=== PATIENT | female | born 1995 | race African-American/Black ===

== ENCOUNTER → 2017-07-20 08:20 | Outpatient (CLI) | payer MEDICAID | END | disposition home or self-care (01) | LOC: D.LDO 08:20 | DX: O26.899 Other specified pregnancy related conditions, unspecified trimester (principal) ==

== ENCOUNTER 2018-09-28 12:54 | Emergency (ER) | payer MEDICAID ==
[~2018-09-28] VITALS: Ht 162.6 cm; Wt 104.5 kg
[2018-09-28 13:00] VITALS: Ht 162.6 cm; Wt 104.5 kg
[2018-09-28 16:15] LABS: ALBUMIN 3.7 g/dL (3.4-5.0); ALKALINE PHOSPHATASE 91 U/L (46-116); ALT (SGPT) 20 U/L (10-68); BILIRUBIN - TOTAL 0.22 mg/dL (0.2-1.3); CALC OSMOLALITY 281 mosm/kg (275-300); CALCIUM 9.1 mg/dL (8.5-10.1); CARBON DIOXIDE 27.1 mmol/L (21.0-32.0); CHLORIDE - SERUM 98 mmol/L (98-107); CREATININE - SERUM 0.8 mg/dL (0.6-1.3); POTASSIUM - SERUM 4.3 mmol/L (3.5-5.1); SODIUM 134 mmol/L (136-145); UREA NITROGEN 10 mg/dL (7-18); eGFR NON AFRICAN AMERICAN > 90 mL/min (90-120)
[2018-09-28 16:16] LABS: GLUCOSE 360 mg/dL (74-106)
[2018-09-28 16:20] LABS: APPEARANCE CLEAR (CLEAR); BILIRUBIN NEGATIVE (NEGATIVE); COLOR STRAW (YELLOW); GLUCOSE 1000 mg/dL (NEGATIVE); KETONE NEGATIVE (NEGATIVE); NITRITE NEGATIVE (NEGATIVE); PROTEIN NEGATIVE (NEGATIVE); SPECIFIC GRAVITY 1.015 (1.005-1.020); UROBILINOGEN NORMAL (NORMAL)
[2018-09-28 16:23] LABS: BACTERIA FEW /hpf (NONE SEEN); EPITHELIAL CELLS 0-5 /hpf (0-5); RED CELLS - URINE 0-5 /hpf (0-5); WHITE CELLS - URINE RARE /hpf (0-5)
[2018-09-28 16:24] LABS: YEAST >1+ WITH HYPHAE /hpf (NONE SEEN)
[2018-09-28 17:24] VITALS: BP 114/60
== END 2018-09-28 17:25 | disposition home or self-care (01) ==
LOC: D.ER 12:54
PROVIDERS: Family Medicine
DX: R73.9 Hyperglycemia, unspecified (principal); F17.200 Nicotine dependence, unspecified, uncomplicated

== ENCOUNTER 2019-03-18 18:23 | Emergency (ER) | payer MEDICAID ==
[~2019-03-18] VITALS: Ht 162.6 cm; Wt 107.7 kg
[2019-03-18 18:45] VITALS: Ht 162.6 cm; Wt 107.7 kg
[2019-03-18] MEDS ORDERED: HYDROCODON-ACE1 EA10 PO (18:56)
[2019-03-18] MEDS ORDERED: XANAX0.5 MG PO (18:57)
[2019-03-18 20:52] LABS: APTT 29.2 SECONDS (22.8-39.4); INR 1.02 (0.85-1.17); PROTIME 12.9 SECONDS (11.6-15.0)
[2019-03-18 20:54] LABS: D-DIMER-QUANTITATIVE < 0.27 ug/mLFEU (0.20-0.54)
[2019-03-18 21:00] LABS: ALBUMIN 3.8 g/dL (3.4-5.0); ALKALINE PHOSPHATASE 75 U/L (46-116); ALT (SGPT) 27 U/L (10-68); BILIRUBIN - TOTAL 0.18 mg/dL (0.2-1.3); CALC OSMOLALITY 275 mosm/kg (275-300); CALCIUM 9.2 mg/dL (8.5-10.1); CARBON DIOXIDE 28.8 mmol/L (21.0-32.0); CHLORIDE - SERUM 102 mmol/L (98-107); CREATININE - SERUM 0.6 mg/dL (0.6-1.3); GLUCOSE 121 mg/dL (74-106); SODIUM 138 mmol/L (136-145); UREA NITROGEN 9 mg/dL (7-18); eGFR NON AFRICAN AMERICAN > 90 mL/min (90-120)
[2019-03-18 21:06] LABS: BASOPHILS 0.2 % (0-2); EOSINOPHILS 1.6 % (0-7); HEMATOCRIT 37.8 % (36.0-48.0); HEMOGLOBIN 12.3 g/dL (12-16); LYMPHOCYTES 43.1 % (15-50); MCH 24.9 pg (26.0-34.0); MCHC 32.5 g/dL (31.0-37.0); MCV 76.7 fL (80.0-100.0); NEUTROPHILS 49.1 % (40-80); PLATELET COUNT 370 10x3/uL (130-400); RBC 4.93 10x6/uL (4.00-5.40); RDW 16.8 % (11.5-14.5); WBC 11.5 10x3/uL (4.8-10.8)
[2019-03-18 21:10] LABS: CREATINE KINASE 334 UL (21-215); MAGNESIUM - SERUM 2.1 mg/dL (1.8-2.4)
[2019-03-18 21:11] LABS: TROPONIN-I < 0.017 ng/mL (0.000-0.060)
[2019-03-18] MEDS ORDERED: VOLTAREN75 MG PO (21:33)
[2019-03-18 22:06] VITALS: BP 122/91
== END 2019-03-18 22:15 | disposition home or self-care (01) ==
LOC: D.ER 18:23
PROVIDERS: Family Medicine
DX: R09.1 Pleurisy (principal)